=== PATIENT | female | born 1975 | race Caucasian/White ===

== ENCOUNTER → 2016-07-14 | Outpatient (CLI) | payer MEDICAID ==
--- NOTE | 2016-07-15 07:28 | MM ---
Reason for exam: clinical finding. Last mammogram was performed 4 months ago. History: Benign US biopsy breast VAD RT of the right breast, July 30, 2015. Physical Findings: Nurse did not find any significant physical abnormalities on exam. MG 3D Diag Mammo W/Cad BHARATHI Bilateral CC and MLO view(s) were taken. Prior study comparison: February 28, 2016, right breast MG 3d diag mammo w/cad RT. July 30, 2015, right breast MG diagnostic mammo RT wo CAD. The breast tissue is extremely dense which could obscure a lesion on mammography. No significant new findings when compared with previous films. These results were verbally communicated with the patient and result sheet given to the patient on 07/14/16. ASSESSMENT: Benign, BI-RAD 2 RECOMMENDATION: Routine screening mammogram of both breasts in 1 year.
--- NOTE | 2016-07-15 07:29 | USB ---
Reason for exam: clinical finding. History: Benign US biopsy breast VAD RT of the right breast, July 30, 2015. US Breast BILAT Right breast ultrasound including all four quadrants, the retroareolar region and axilla demonstrates a 0.5 x 0.3 x 0.2cm cystc lesion at 4 o'clock. Left breast ultrasound including all four quadrants, the retroareolar region and axilla demonstrates a 0.3 x 0.2 x 0.2cm cystic lesion at 3 o'clock. These results were verbally communicated with the patient and result sheet given to the patient on 07/14/16. ASSESSMENT: Benign, BI-RAD 2 RECOMMENDATION: Routine screening mammogram of both breasts in 1 year.
== END | disposition home or self-care (01) ==
LOC: RADMAMWWP 14:15
PROVIDERS: ATTEND Obstetrics & Gynecology
DX: R92.8 Other abnormal and inconclusive findings on diagnostic imaging of breast (principal)
CPT/HCPCS: 76641; G0204; G0279

== ENCOUNTER → 2016-08-19 | Outpatient (CLI) | payer MEDICAID | END | disposition home or self-care (01) | LOC: LABWHC1 10:08 | PROVIDERS: ATTEND Internal Medicine Cardiovascular Disease | DX: R05 Cough (principal); R50.9 Fever, unspecified; J02.9 Acute pharyngitis, unspecified | CPT/HCPCS: 87502 ==

== ENCOUNTER → 2017-12-02 | Outpatient (CLI) | payer MEDICAID | END | disposition home or self-care (01) | LOC: LABWHC1 11:01 | PROVIDERS: ATTEND Nurse Practitioner | DX: R53.83 Other fatigue (principal); R42 Dizziness and giddiness; M25.50 Pain in unspecified joint | CPT/HCPCS: 36415 ==

== ENCOUNTER → 2018-09-28 | Outpatient (CLI) | payer MEDICAID ==
--- NOTE | 2018-09-29 13:34 | MM ---
Reason for exam: screening (asymptomatic). Last mammogram was performed 2 years and 3 months ago. History: Benign US biopsy breast VAD RT of the right breast, July 30, 2015. Physical Findings: A clinical breast exam by your physician is recommended on an annual basis and results should be correlated with mammographic findings. MG 3D Screening Mammo W/Cad Bilateral CC and MLO view(s) were taken. Prior study comparison: July 14, 2016, bilateral MG 3d diag mammo w/cad BHARATHI. February 28, 2016, right breast MG 3d diag mammo w/cad RT. The breast tissue is extremely dense which could obscure a lesion on mammography. No suspicious abnormality. Right breast biopsy marker noted. No significant changes when compared with prior studies. ASSESSMENT: Negative, BI-RAD 1 RECOMMENDATION: Routine screening mammogram of both breasts in 1 year.
== END | disposition home or self-care (01) ==
LOC: RADMAMWWP 13:29
PROVIDERS: ATTEND Obstetrics & Gynecology Obstetrics
DX: Z12.31 Encounter for screening mammogram for malignant neoplasm of breast (principal)
CPT/HCPCS: 77063; 77067

== ENCOUNTER → 2020-11-21 | Outpatient (CLI) | payer MEDICAID ==
[2020-11-21 11:44] LABS: HCT 41.8 % (37.2-46.3); HGB 13.6 g/dL (12.0-15.0); MCH 32.1 pg (27.0-32.0); MCHC 32.5 g/dL (32.0-37.0); MCV 98.6 fL (80.0-97.0); Mean Platelet Volume 12.7 fL (9.5-12.2); Platelet Count 193 X 10*3/uL (140-440); RBC 4.24 X 10*6/uL (4.10-5.20); RDW 11.9 % (11.5-14.5); WBC 5.17 X 10*3/uL (4.50-10.00)
[2020-11-22 00:43] LABS: African American GFR (CKD) 79.9 (60.0-200.0); Chol/HDL Ratio 2.19; Non-African American GFR(CKD) 68.9 (60.0-200.0)
[2020-11-22 05:05] LABS: Thyroid Peroxidase Antibodies <28.0 U/mL (0.0-60.0)
== END | disposition home or self-care (01) ==
LOC: LABWHC1 07:11
PROVIDERS: ATTEND Obstetrics & Gynecology Obstetrics
DX: Z00.00 Encounter for general adult medical examination without abnormal findings (principal)
CPT/HCPCS: 36415; 80061; 82306; 82565; 84439; 84443; 84450; 84460; 84480; 84481; 84520; 85027; 86376; 86800

== ENCOUNTER → 2020-12-31 | Outpatient (CLI) | payer MEDICAID ==
--- NOTE | 2021-01-02 08:36 | MM ---
Reason for exam: screening (asymptomatic). Last mammogram was performed 2 years and 3 months ago. History: Benign US biopsy breast VAD RT of the right breast, July 30, 2015. Took hormonal contraceptives for 1 year. Physical Findings: A clinical breast exam by your physician is recommended on an annual basis and results should be correlated with mammographic findings. MG 3D Screening Mammo W/Cad Bilateral CC and MLO view(s) were taken. Prior study comparison: September 28, 2018, bilateral MG 3d screening mammo w/cad. July 14, 2016, bilateral MG 3d diag mammo w/cad BHARATHI. The breast tissue is heterogeneously dense. This may lower the sensitivity of mammography. There is no discrete abnormality. ASSESSMENT: Benign, BI-RAD 2 RECOMMENDATION: Routine screening mammogram of both breasts in 1 year.
== END | disposition home or self-care (01) ==
LOC: RADMAMWWP 14:27
PROVIDERS: ATTEND Obstetrics & Gynecology Obstetrics
DX: Z12.31 Encounter for screening mammogram for malignant neoplasm of breast (principal)
CPT/HCPCS: 77063; 77067

== ENCOUNTER → 2022-01-15 | Outpatient (CLI) | payer MEDICAID ==
[2022-01-15 10:47] LABS: HDL Cholesterol 76.1 mg/dL (40.00-60.00); Triglycerides 48.3 mg/dL (0.00-149.00)
[2022-01-15 10:48] LABS: HCT 40.9 % (37.2-46.3); HGB 13.2 g/dL (12.0-15.0); MCH 31.1 pg (27.0-32.0); MCHC 32.3 g/dL (32.0-37.0); MCV 96.2 fL (80.0-97.0); Mean Platelet Volume 11.9 fL (9.5-12.2); NRBC Per 100 WBC 0 /100 WBCS (0.0-0.0); Platelet Count 192 X 10*3/uL (140-440); RBC 4.25 X 10*6/uL (4.10-5.20); WBC 5.65 X 10*3/uL (4.50-10.00)
[2022-01-15 11:00] LABS: Chol/HDL Ratio 2.18 Ratio; LDL Cholesterol,Direct Reflex 82.6 mg/dL (0.00-129.00)
[2022-01-15 12:21] LABS: T4, Free (Free Thyroxine) 1.13 ng/dL (0.800-1.800)
== END | disposition home or self-care (01) ==
LOC: LABWHC1 07:13
PROVIDERS: ATTEND Obstetrics & Gynecology Obstetrics
DX: Z13.89 Encounter for screening for other disorder (principal)
CPT/HCPCS: 36415; 80061; 82306; 83036; 83721; 84439; 84443; 85027